=== PATIENT | male | born 1990 | race African-American/Black ===

== ENCOUNTER 2024-06-17 14:01 | Outpatient (CLI) | payer OTHER, SELFPAY ==
--- NOTE | ~2024-06-17 | XR_ITS ---
XR finger 1st LT min 2V 06/17/2024 14:17 INDICATION: Left first finger pain PROCEDURE: 3 views left first finger COMPARISON: No prior studies for comparison. FINDINGS: Fracture, dislocation or subluxation is not identified. The soft tissues appear within norm al limits. No foreign bodies are identified. IMPRESSION: 1: NO ACUTE BONE OR JOINT ABNORMALITY IDENTIFIED. Reviewed, dictated and finalized at location B.
== END 2024-06-17 14:02 | disposition home or self-care (01) ==
LOC: ANHIMG 14:06
PROVIDERS: PCP Plastic Surgery; Visit Provider Plastic Surgery
DX: S63.642A Sprain of metacarpophalangeal joint of left thumb, initial encounter (principal); X58.XXXA Exposure to other specified factors, initial encounter
CPT/HCPCS: 73140

== ENCOUNTER 2025-04-17 05:50 | Day surgery (SDC) | payer OTHER, SELFPAY ==
[2025-04-08 11:41] VITALS: BMI 26.2
[2025-04-17] VITALS (10 sets, daily range): BP systolic 102–135; BP diastolic 56–84; PULSE 53–89; RESP 14–20; TEMP 36.2–36.6; O2SAT 91–100
--- NOTE | ~2025-04-17 | XR_ITS ---
INTRAOPERATIVE FLUOROSCOPY: CLINICAL HISTORY: 34 years old Male; LEFT THUMB ULNAR COLLATERAL LIGAMENT REPAIR PROCEDURE COMMENTS: Limited intraoperative fluoroscopy of the left thumb was performed. CUMULATIVE DOSE: .03 mGy FLUOROSCOPY TIME: 9 seconds FINDINGS/IMPRESSION: Please refer to operative note for further details. Reviewed, dictated and finalized at location A.
--- NOTE | 2025-04-17 06:47 | P.PNAN_ITS ---
Anes - Eval Pre Procedure Procedure: Operation Date: 04/17/25 07:30 Proposed Procedures p Left Thumb Ulnar Collateral Ligament Repair/Reconstruction - Lei Macedo MD Date/Time: 04/17/25 06:47 Pre Op Diagnosis: Sprain Metacarpophalangeal Joint Left Thumb Patient Data Age: 34 Gender: M Height: 1.75 m Weight: 74.4 kg Last Vital Signs Temp 97.8 F 04/17/25 06:15 Pulse 53 L 04/17/25 06:15 Resp 16 04/17/25 06:15 BP 135/84 04/17/25 06:15 Pulse Ox 100 04/17/25 06:15 O2 Del Method Room Air 04/17/25 06:15 Allergies Allergy/AdvReac Type Severity Reaction Status Date / Time Penicillins Allergy Anaphylaxis Verified 04/17/25 06:14 Home Medications ?Medication ?Instructions ?Recorded ?Confirmed ?Type No Home Medications 04/08/25 04/08/25 History Patient hx anesthesia problems: none Family hx anesthesia problems: none Results Review: All pre-operative results and documents have been reviewed as part of the pre- operative evaluation. [facility] Social History Social History Smoking status: Never smoker Living arrangements: incarcerated Comments ASA1 Exam Day of Procedure 04/17/25 06:47 Heart: regular rate and rhythm Lungs: clear to auscultation Airway: Mallampati scale class 1 Neurological: alert and oriented
--- NOTE | 2025-04-17 06:50 | WPDANESPN ---
Anes - Prog Note Post-Op Date/Time: 04/17/25 06:50 Vital Signs: Last Vital Signs Temp 97.8 F 04/17/25 06:15 Pulse 53 L 04/17/25 06:15 Resp 16 04/17/25 06:15 BP 135/84 04/17/25 06:15 Pulse Ox 100 04/17/25 06:15 O2 Del Method Room Air 04/17/25 06:15 Pain Score (VAS): no Patient Feedback: Patient satisfied with anesthetic care.
[2025-04-17] MEDS: LACTATED RINGERS 1,000 ML 30 ML IV CONT (06:54)
--- NOTE | 2025-04-17 06:55 | PM.HPGS ---
History of Present Illness History of Present Illness Chief complaint: Sprain Metacarpophalangeal Joint Left Thumb Narrative: Patient seen and examined in pre-operative holding area. No interval change in medical history or symptoms noting persistent pain around left thumb mpj joint with pinching/gripping and stiffness. Patient recalls previous discussion of benefits and alternatives to procedure. Continues to desire to proceed with left thumb ulnar collateral ligament repair/recon . Reviewed procedure, post-op expectations and risks including but not limited to bleeding, infection, injury to tendon/nerve/vessel, decreased hand function, stiffness, RSD, no change or worsening of symptoms, hardware complications, failure of repair. I discussed the possible use of assistants and their participation in the case. Patient stated understanding and signed the consent form wishing to proceed. Review of Systems Review of Systems: All systems reviewed & are unremarkable except as noted in HPI and below PMFSH Social History Social History Smoking status: Never smoker Living arrangements: incarcerated Meds Home Medications and Allergies Home Medications ?Medication ?Instructions ?Recorded ?Confirmed ?Type No Home Medications 04/08/25 04/08/25 History Allergies Allergy/AdvReac Type Severity Reaction Status Date / Time Penicillins Allergy Anaphylaxis Verified 04/17/25 06:14 Vital Signs Vital Signs - 24 hr 04/17/25 06:15 Temperature 36.6 C Pulse Rate 53 L Respiratory Rate 16 Blood Pressure 135/84 Pulse Oximetry 100 Oxygen Delivery Room Air Exam Narrative: unchanged Assessment and Plan Assessment and plan (1) Sprain of ulnar collateral ligament of metacarpophalangeal (MCP) joint of left thumb: Qualifiers: Encounter type: initial encounter Qualified Code(s): S63.642A - Sprain of metacarpophalangeal joint of left thumb, initial encounter Code(s): S63.642A - Sprain of metacarpophalangeal joint of left thumb, initial encounter Status: Acute Assessment and Plan: cont as above
--- NOTE | 2025-04-17 06:56 | P.OP_ITS ---
Procedure Note - Detailed Date of Procedure 04/17/25 Pre-op Diagnosis Sprain Metacarpophalangeal Joint Left Thumb Post-op Diagnosis Same Procedure Performed left thumb ucl repair/recon Surgeon Lei Macedo MD Chemical Recovery Operator luisa elias pa-c Anesthesia General Description of Procedure INFORMED CONSENT: The patient was seen and examined and marked in the pre-op area.? The patient signed the consent form. PROCEDURE IN DETAIL:The patient taken back to OR on the stretcher in supine p osition. Time out performed with anesthesia, surgeon and staff agreeing on patient's name site and surgery to be performed SCDs were placed on the lower extremities and inflated. A tourniquet was placed on {left} upper extremity and antibiotics given IV After anesthesia administered sedation I injected {8}cc 1%lido with epi and 0.5% marcaine plain at the operative site and median and radial nerve block The?{left upper extremity}?was prepped and draped in sterile fashion the??{left upper extremity} was? exsanguinated with Esmarch bandage and tourniquet inflated to 250mmHg I proceeded with making a curvilinear incision over the ulnar side of the left thumb metacarpophalangeal joint through skin and dermis with a 15 blade scalpel. Littler scissors were used to spread through subcutaneous tissue down to the abductor aponeurosis. I made an incision along dorsal aspect of aponeurosis and proceeded with reflecting this to expose the joint capsule. The capsule appeared thickened in appearance. I made my capsulotomy and reflected the capsule. The anatomy was distorted and appeared to be a combination of scar tissue and residual ulnar collateral ligament. The joint was inspected and a small articular defect was appreciated on the head of the metacarpal. I irrigated with normal saline. With further dissection I was able to identify what appeared to be a remnant of the ulnar collateral ligament inserting on the proximal phalanx. The decision was made to proceed with repair and reinforcement with internal brace. Using 15 blade and [place] elevator I cleared off a space near the origin insertion of the ulnar collateral ligament on the metacarpal and proximal phalanx respectively. K-wires were placed and position verified on mini fluoroscopy on multiple views. Using 3-0 FiberWire suture I used a modified Saenz to grasp the distal portion of the ligament. I drilled over the proximal K-wire and then using an Arthrex SwiveLock anchor with internal brace and this previously placed 3-0 FiberWire suture holding the thumb in reduction secured the anchor. Next I drilled the proximal phalanx K-wire which was noted to be completely within cortex of bone the x-ray demonstrated this was close to the volar cortex and proceeded with securing the internal brace in this anchor point with another SwiveLock anchor. The anchor was fully inserted into bone. There was good stability of the MP joint on lateral stress. There was clear impingement on flexion and extension range of motion. Irrigated with normal saline. The capsule was repaired with 3-0 Vicryl suture. Five 0 Prolene was used to repair the abductor aponeurosis. 4-0 Biosyn was used for dermal and subcuticular closure. A dressing of dermabond, 4x4, yaneli, and a thumb spica splint was applied for patient safety, security, and comfort and secured with an garrison bandage after the tourniquet was let down noting the hand was warm and well perfused. The patient was then awaken from anesthesia and transferred to the recovery room in stable condition.? Complications - none EBL- 0cc Disposition - home in stable conditions Luisa Elias PA-C was essential for positioining, retraction, closure and dressing placement G Billing Surgery - Charge Forward: Surgery Billing ([id number] for luisa)
[2025-04-17] MEDS: CLINDAMYCIN 900 MG/NS 50 ML 900 MG/50 ML PIGGYBACK 50 MG IVPB (06:57)
[2025-04-17] MEDS: LIDO 1%/EPINEPHRINE 1:100,000 10 ML VIAL 4 ML INFILTRATE (08:10)
[2025-04-17] MEDS: BUPivacaine HCL 0.5% 10 ML AMP INFILTRATE (08:10)
--- NOTE | 2025-04-17 09:06 | WPDANESPN ---
Anes - Prog Note Post-Op Date/Time: 04/17/25 09:06 Vital Signs: Last Vital Signs Temp 97.8 F 04/17/25 06:15 Pulse 53 L 04/17/25 06:15 Resp 16 04/17/25 06:15 BP 135/84 04/17/25 06:15 Pulse Ox 100 04/17/25 06:15 O2 Del Method Room Air 04/17/25 06:15 Pain Score (VAS): NO PAIN I/O: Intake & Output 04/16/25 04/17/25 04/17/25 23:59 07:59 15:59 Intake Total 50 Balance 50 Patient Feedback: Patient satisfied with anesthetic care.
[2025-04-17] MEDS: ALBUTEROL SULFATE NEB 2.5 MG/3 ML INH 1.25 MG INHALATION (09:51)
== END 2025-04-17 10:55 | disposition home or self-care (01) ==
PROVIDERS: Visit Provider Plastic Surgery
PROC: (CPT 26540; principal; 2025-04-17 07:30)
DX: S63.642A Sprain of metacarpophalangeal joint of left thumb, initial encounter (principal); X58.XXXA Exposure to other specified factors, initial encounter
CPT/HCPCS: 26540; 99199